=== PATIENT | male | born 2000 | race Two or more races ===

== ENCOUNTER 2025-08-12 10:29 | Emergency (ER) | payer OTHER ==
[2025-08-12] MEDS: Diphtheria,Pertussis(Acell),Tetanus Vaccine 0.5 ML Syringe IM ONE (12:15)
[2025-08-12] MEDS: Bacitracin Oint 1 GM U/D Packet TOP ONE (12:16)
== END 2025-08-12 13:01 | disposition home or self-care (01) ==
LOC: MW.ED 10:29 → EDBD 10:29 → MW.ED 13:01
DX: S93.401A Sprain of unspecified ligament of right ankle, initial encounter (principal); V29.99XA Rider (driver) (passenger) of other motorcycle injured in unspecified traffic accident, initial encounter
CPT/HCPCS: 73610; 90471; 90715; 99283; A9270